=== PATIENT | female | born 1945 | race Caucasian/White ===

== ENCOUNTER 2021-08-17 12:20 | Inpatient (IN) | payer MEDICARE, BC ==
[2021-08-17 13:25] LABS: Mean Corpuscular HGB CONC 30.5 g/dL (32.0-36.0); Mean Corpuscular Hemoglobin 29.6 pg (27.0-31.0); Mean Corpuscular Volume 97.1 fL (78.0-98.0); Mean Platelet Volume 7.9 fL (7.4-10.4); Platelet Count 315 thou/uL (130-400); RBC Distribution Width 13.8 % (11.5-14.5); Red Blood Cell (RBC) Count 5.09 mill/uL (4.20-5.40); White Blood Cell (WBC) Count 22.6 thou/uL (4.8-10.8)
[2021-08-17] MEDS ORDERED: Cefepime 2 GM VIAL ONE (13:29)
[2021-08-17 13:43] LABS: ALT (SGPT) 10 U/L (8-55); AST (SGOT) 18 U/L (5-34); Alkaline Phosphatase 112 U/L (40-110); Anion Gap 16 mmol/L (10-20); BUN (Urea Nitrogen) 15 mg/dL (9.8-20.1); Band 48 % (5-11); Bilirubin, Total 0.4 mg/dL (0.2-1.2); Calc. Creatinine Clearance 0 mL/min (70-130); Calcium 9.6 mg/dL (7.8-10.44); Carbon Dioxide 25 mmol/L (23-31); Chloride 105 mmol/L (98-107); Globulin 3.6 g/dL (2.4-3.5); Glucose 114 mg/dL (83-110); Hypochromia SLIGHT = 6-15 cells (100X) (0-5/hpf); Lymphocytes 11 % (21-51); MDiff Complete? YES; Monocytes 3 % (0-10); Neutrophil 38 % (42-75); Platelet Morphology Comment Appears Adequate; Potassium 4.3 mmol/L (3.5-5.1); Protein, Total 7.6 g/dL (5.8-8.1); Reflex for Review?? YES; Sodium 142 mmol/L (136-145)
[2021-08-17] MEDS ORDERED: Ondansetron PF 4 MG/2 ML Vial ONE ×2 (14:02→14:35)
[2021-08-17] MEDS ORDERED: metroNIDAZOLE 500 MG/100 ML BAG ONE (14:14)
[2021-08-17] MEDS ORDERED: Ondansetron PF 4 MG/2 ML Vial IVP PRN (14:52)
[2021-08-17] MEDS ORDERED: Meropenem 1 GM in Sodium Chloride 0.9% 100 ML IVPB SCH ×2 (14:57→17:45)
[2021-08-17 16:38] LABS: Lactic Acid 2.2 mmol/L (0.5-2.2)
[2021-08-17 17:15] VITALS: BMI 25.2
[2021-08-17] MEDS: Acetaminophen 325 MG TAB PO PRN (17:34)
[2021-08-17] MEDS: Dextrose 5 %-0.45 % NaCl 1,000 ML IV SCH (18:07)
[2021-08-17] MEDS: Pantoprazole 40 MG VIAL IVP SCH (18:07)
[2021-08-18] MEDS: Acetaminophen 325 MG TAB PO PRN ×4 (02:07→16:14)
[2021-08-18] MEDS: Meropenem 1 GM in Sodium Chloride 0.9% 100 ML IVPB SCH ×2 (02:08→13:05)
[2021-08-18] MEDS: Dextrose 5 %-0.45 % NaCl 1,000 ML IV SCH (02:18)
[2021-08-18 05:57] LABS: Anion Gap 14 mmol/L (10-20); BUN (Urea Nitrogen) 12 mg/dL (9.8-20.1); Calc. Creatinine Clearance 60 mL/min (70-130); Calcium 8.6 mg/dL (7.8-10.44); Carbon Dioxide 23 mmol/L (23-31); Chloride 110 mmol/L (98-107); Glucose 130 mg/dL (83-110); Potassium 3.3 mmol/L (3.5-5.1); Sodium 144 mmol/L (136-145)
[2021-08-18 05:59] LABS: Hemoglobin 12.5 g/dL (12.0-16.0); Mean Corpuscular HGB CONC 30.6 g/dL (32.0-36.0); Mean Corpuscular Hemoglobin 30.4 pg (27.0-31.0); Mean Corpuscular Volume 99.3 fL (78.0-98.0); Mean Platelet Volume 8.6 fL (7.4-10.4); Platelet Count 267 thou/uL (130-400); RBC Distribution Width 13.6 % (11.5-14.5); Red Blood Cell (RBC) Count 4.12 mill/uL (4.20-5.40); White Blood Cell (WBC) Count 25.5 thou/uL (4.8-10.8)
[2021-08-18 06:22] LABS: Band 34 % (5-11); Lymphocytes 7 % (21-51); MDiff Complete? YES; Monocytes 6 % (0-10); Neutrophil 53 % (42-75)
[2021-08-18] MEDS ORDERED: Potassium Chloride 20 MEQ TAB PO SCH (08:00)
[2021-08-18] MEDS: Potassium Chloride 20 MEQ in Premix Bag 1 BAG IVPB SCH ×2 (08:39→13:46)
[2021-08-18] MEDS: Enoxaparin Sodium 30 MG/0.3 ML SYRINGE SC SCH (08:48)
[2021-08-18] MEDS: metroNIDAZOLE 500 MG in Premix Bag 1 BAG IVPB SCH ×2 (11:21→17:51)
[2021-08-18] MEDS: Pantoprazole 40 MG VIAL IVP SCH (17:47)
[2021-08-19] MEDS: metroNIDAZOLE 500 MG in Premix Bag 1 BAG IVPB SCH ×3 (00:58→18:21)
[2021-08-19] MEDS: Metoclopramide HCl 10 MG/2 ML VIAL IVP PRN ×2 (00:58→11:27)
[2021-08-19] MEDS: Acetaminophen 325 MG TAB PO PRN ×3 (01:07→20:45)
[2021-08-19] MEDS: Meropenem 1 GM in Sodium Chloride 0.9% 100 ML IVPB SCH ×3 (02:39→23:23)
[2021-08-19 04:52] LABS: Hemoglobin 13.1 g/dL (12.0-16.0); Mean Corpuscular HGB CONC 30.5 g/dL (32.0-36.0); Mean Corpuscular Hemoglobin 29.4 pg (27.0-31.0); Mean Corpuscular Volume 96.5 fL (78.0-98.0); Mean Platelet Volume 8.5 fL (7.4-10.4); Platelet Count 304 thou/uL (130-400); RBC Distribution Width 13.6 % (11.5-14.5); Red Blood Cell (RBC) Count 4.44 mill/uL (4.20-5.40); White Blood Cell (WBC) Count 23.6 thou/uL (4.8-10.8)
[2021-08-19 05:04] LABS: Anion Gap 14 mmol/L (10-20); BUN (Urea Nitrogen) 11 mg/dL (9.8-20.1); Calc. Creatinine Clearance 66 mL/min (70-130); Calcium 9.4 mg/dL (7.8-10.44); Carbon Dioxide 27 mmol/L (23-31); Chloride 104 mmol/L (98-107); Glucose 117 mg/dL (83-110); Potassium 3.5 mmol/L (3.5-5.1); Sodium 141 mmol/L (136-145)
[2021-08-19 05:26] LABS: Band 21 % (5-11); Lymphocytes 2 % (21-51); MDiff Complete? YES; Monocytes 4 % (0-10); Neutrophil 73 % (42-75)
[2021-08-19] MEDS: Enoxaparin Sodium 30 MG/0.3 ML SYRINGE SC SCH (08:41)
[2021-08-19] MEDS ORDERED: Iopamidol-370 76% 500 ML 1 ML ONE (11:27)
[2021-08-19] MEDS ORDERED: Lactated Ringer's 500 ML IV SCH (13:00)
[2021-08-19] MEDS ORDERED: Azithromycin 500 MG in Sodium Chloride 0.9% 250 ML 250 ML IVPB SCH (13:00)
[2021-08-19 13:27] LABS: Magnesium 1.6 mg/dL (1.6-2.6)
[2021-08-19 15:58] LABS: Lactic Acid 1.9 mmol/L (0.5-2.2)
[2021-08-19] MEDS: Promethazine HCl 12.5 MG in Sodium Chloride 0.9% 50 ML IVPB SCH ×2 (17:34→23:27)
[2021-08-19] MEDS: Pantoprazole 40 MG VIAL IVP SCH (17:34)
[2021-08-19] MEDS: Metoclopramide HCl 10 MG/2 ML VIAL IVP SCH ×2 (18:21→23:21)
[2021-08-19] MEDS: Dextrose 5 %-0.45 % NaCl 1,000 ML IV SCH ×2 (23:17)
[2021-08-20] MEDS: metroNIDAZOLE 500 MG in Premix Bag 1 BAG IVPB SCH ×2 (01:32→08:30)
[2021-08-20] MEDS: Acetaminophen 325 MG TAB PO PRN ×4 (02:06→20:38)
[2021-08-20] MEDS: Metoclopramide HCl 10 MG/2 ML VIAL IVP SCH ×4 (05:35→23:08)
[2021-08-20] MEDS: Meropenem 1 GM in Sodium Chloride 0.9% 100 ML IVPB SCH ×3 (05:35→21:42)
[2021-08-20] MEDS: Promethazine HCl 12.5 MG in Sodium Chloride 0.9% 50 ML IVPB SCH ×2 (05:39→13:24)
[2021-08-20] MEDS: Enoxaparin Sodium 30 MG/0.3 ML SYRINGE SC SCH (08:29)
[2021-08-20 09:19] LABS: Band 1 % (5-11); Eosinophils 1 % (0-10); Hemoglobin 13.6 g/dL (12.0-16.0); Hypochromia SLIGHT = 6-15 cells (100X) (0-5/hpf); Lymphocytes 9 % (21-51); MDiff Complete? YES; Mean Corpuscular HGB CONC 30.6 g/dL (32.0-36.0); Mean Corpuscular Hemoglobin 29.8 pg (27.0-31.0); Mean Corpuscular Volume 97.3 fL (78.0-98.0); Mean Platelet Volume 8.4 fL (7.4-10.4); Monocytes 5 % (0-10); Neutrophil 77 % (42-75); Platelet Count 295 thou/uL (130-400); Platelet Morphology Comment Appears Adequate; Polychromasia SLIGHT = 2-3 cells (100X) (0-2/hpf); RBC Distribution Width 13.5 % (11.5-14.5); Reactive Lymphocytes 6 % (0-10); Red Blood Cell (RBC) Count 4.56 mill/uL (4.20-5.40); White Blood Cell (WBC) Count 18.8 thou/uL (4.8-10.8)
[2021-08-20 09:20] LABS: Anion Gap 14 mmol/L (10-20); BUN (Urea Nitrogen) 8 mg/dL (9.8-20.1); Calc. Creatinine Clearance 65 mL/min (70-130); Calcium 9.4 mg/dL (7.8-10.44); Carbon Dioxide 26 mmol/L (23-31); Chloride 104 mmol/L (98-107); Glucose 128 mg/dL (83-110); Potassium 3.2 mmol/L (3.5-5.1); Sodium 141 mmol/L (136-145)
[2021-08-20] MEDS: Dextrose 5 %-0.45 % NaCl 1,000 ML IV SCH ×2 (10:52→21:42)
[2021-08-20] MEDS: Diltiazem HCl 125 MG in Premix Bag 1 BAG IVPB SCH ×2 (13:15→23:10)
[2021-08-20] MEDS ORDERED: Ondansetron ODT 8 MG TAB SL PRN (14:14)
[2021-08-20 17:24] LABS: Free T4 (Free Thyroxine) 1.02 ng/dL (0.70-1.48); Thyroid Stimulating Hormone 1.1139 uIU/mL (0.35-4.94)
[2021-08-20] MEDS: Pantoprazole 40 MG VIAL IVP SCH (19:29)
[2021-08-20] MEDS: Atorvastatin Calcium 20 MG TAB PO SCH (20:38)
[2021-08-21] MEDS: Acetaminophen 325 MG TAB PO PRN ×6 (00:31→23:55)
[2021-08-21 04:45] LABS: #Basophils 0.1 thou/uL (0.0-0.2); #Eosinphils 0.2 thou/uL (0.0-0.7); #Lymphocytes 1.5 thou/uL (1.20-3.40); #Monocytes 1.1 thou/uL (0.11-0.59); #Neutrophils 11.2 thou/uL (1.40-6.50); %Basophils 0.4 % (0.0-1.0); %Eosinophils 1.2 % (0.0-10.0); %Lymphocytes 10.7 % (21.0-51.0); %Monocytes 8.1 % (0.0-10.0); %Neutrophils 79.6 % (42.0-75.0); Hemoglobin 11.7 g/dL (12.0-16.0); Mean Corpuscular HGB CONC 30.8 g/dL (32.0-36.0); Mean Corpuscular Hemoglobin 30.3 pg (27.0-31.0); Mean Corpuscular Volume 98.2 fL (78.0-98.0); Mean Platelet Volume 8.2 fL (7.4-10.4); Platelet Count 287 thou/uL (130-400); RBC Distribution Width 13.5 % (11.5-14.5); Red Blood Cell (RBC) Count 3.86 mill/uL (4.20-5.40)
[2021-08-21] MEDS: Dextrose 5 %-0.45 % NaCl 1,000 ML IV SCH (05:04)
[2021-08-21] MEDS: Levothyroxine Sodium 25 MCG TAB PO SCH (05:06)
[2021-08-21] MEDS: Metoclopramide HCl 10 MG/2 ML VIAL IVP SCH ×2 (05:06→12:06)
[2021-08-21] MEDS: Meropenem 1 GM in Sodium Chloride 0.9% 100 ML IVPB SCH ×3 (05:06→22:12)
[2021-08-21 05:08] LABS: Anion Gap 11 mmol/L (10-20); BUN (Urea Nitrogen) 7 mg/dL (9.8-20.1); Calc. Creatinine Clearance 72 mL/min (70-130); Calcium 8.8 mg/dL (7.8-10.44); Carbon Dioxide 30 mmol/L (23-31); Chloride 106 mmol/L (98-107); Glucose 136 mg/dL (83-110); Sodium 144 mmol/L (136-145)
[2021-08-21 05:11] LABS: Potassium 2.8 mmol/L (3.5-5.1)
[2021-08-21] MEDS ORDERED: Electrolyte Replacement Protocol FS PRN (06:15)
[2021-08-21 06:35] LABS: Magnesium 1.5 mg/dL (1.6-2.6)
[2021-08-21] MEDS: Potassium Chloride 40 MEQ in Sodium Chloride 0.9% 250 ML 250 ML IVPB SCH ×2 (07:44→12:06)
[2021-08-21] MEDS: Cholecalciferol 1,000 UNITS (25 MCG) TAB PO SCH (07:45)
[2021-08-21] MEDS: predniSONE 20 MG TAB PO SCH (07:45)
[2021-08-21] MEDS: Cyanocobalamin (Vitamin B-12) 1,000 MCG TAB PO SCH (07:45)
[2021-08-21] MEDS: Aspirin 81 mg Enteric Coated Tablet PO SCH (07:45)
[2021-08-21] MEDS: Enoxaparin Sodium 40 MG/0.4 ML SYRINGE SC SCH (07:45)
[2021-08-21] MEDS ORDERED: Magnesium 2 GM/50 ML(in water) 2 GM in Premix Bag 1 BAG IVPB SCH (08:00)
[2021-08-21] MEDS: Pantoprazole 40 MG VIAL IVP SCH (17:56)
[2021-08-21 18:02] VITALS: BP 139/64
[2021-08-21] MEDS: Atorvastatin Calcium 20 MG TAB PO SCH (19:59)
[2021-08-21 20:09] LABS: Potassium 3.9 mmol/L (3.5-5.1)
[2021-08-22] MEDS: Acetaminophen 325 MG TAB PO PRN ×4 (04:06→19:50)
[2021-08-22 04:49] LABS: Anion Gap 15 mmol/L (10-20); BUN (Urea Nitrogen) 12 mg/dL (9.8-20.1); Calc. Creatinine Clearance 79 mL/min (70-130); Carbon Dioxide 28 mmol/L (23-31); Chloride 105 mmol/L (98-107); Glucose 98 mg/dL (83-110); Potassium 3.6 mmol/L (3.5-5.1); Sodium 144 mmol/L (136-145)
[2021-08-22] MEDS: Meropenem 1 GM in Sodium Chloride 0.9% 100 ML IVPB SCH ×3 (05:17→19:48)
[2021-08-22] MEDS: Levothyroxine Sodium 25 MCG TAB PO SCH (05:17)
[2021-08-22] MEDS: Enoxaparin Sodium 40 MG/0.4 ML SYRINGE SC SCH (08:28)
[2021-08-22] MEDS: predniSONE 20 MG TAB PO SCH (08:28)
[2021-08-22] MEDS: Cholecalciferol 1,000 UNITS (25 MCG) TAB PO SCH (08:28)
[2021-08-22] MEDS: Cyanocobalamin (Vitamin B-12) 1,000 MCG TAB PO SCH (08:28)
[2021-08-22] MEDS: Aspirin 81 mg Enteric Coated Tablet PO SCH (08:28)
[2021-08-22] MEDS ORDERED: Potassium Chloride 20 MEQ TAB PO SCH (13:00)
[2021-08-22] MEDS: Pantoprazole 40 MG VIAL IVP SCH (16:35)
[2021-08-22] MEDS: Atorvastatin Calcium 20 MG TAB PO SCH (19:48)
[2021-08-23] MEDS: Acetaminophen 325 MG TAB PO PRN (02:59)
[2021-08-23 04:32] LABS: Mean Corpuscular HGB CONC 31.5 g/dL (32.0-36.0); Mean Corpuscular Hemoglobin 30.4 pg (27.0-31.0); Mean Corpuscular Volume 96.4 fL (78.0-98.0); Mean Platelet Volume 7.9 fL (7.4-10.4); Platelet Count 364 thou/uL (130-400); RBC Distribution Width 13.6 % (11.5-14.5); Red Blood Cell (RBC) Count 3.93 mill/uL (4.20-5.40); White Blood Cell (WBC) Count 9.9 thou/uL (4.8-10.8)
[2021-08-23 04:52] LABS: Anion Gap 15 mmol/L (10-20); BUN (Urea Nitrogen) 18 mg/dL (9.8-20.1); Calc. Creatinine Clearance 0 mL/min (70-130); Calcium 9.3 mg/dL (7.8-10.44); Carbon Dioxide 27 mmol/L (23-31); Chloride 106 mmol/L (98-107); Glucose 105 mg/dL (83-110); Potassium 3.6 mmol/L (3.5-5.1); Sodium 144 mmol/L (136-145)
[2021-08-23] MEDS: Levothyroxine Sodium 25 MCG TAB PO SCH (06:01)
[2021-08-23 07:37] VITALS: TEMP 98
[2021-08-23] MEDS: Aspirin 81 mg Enteric Coated Tablet PO SCH (09:12)
[2021-08-23] MEDS: predniSONE 20 MG TAB PO SCH (09:12)
[2021-08-23] MEDS: Enoxaparin Sodium 40 MG/0.4 ML SYRINGE SC SCH (09:13)
[2021-08-23] MEDS: Cyanocobalamin (Vitamin B-12) 1,000 MCG TAB PO SCH (09:14)
[2021-08-23] MEDS: Cholecalciferol 1,000 UNITS (25 MCG) TAB PO SCH (09:14)
== END 2021-08-23 11:15 | disposition home or self-care (01) | DRG 393 ==
LOC: SUATTDRO 12:20 → ERS 12:20 → NEURO 14:27 → IMCU/EMU 08-19 20:18
PROVIDERS: ADMIT Internal Medicine; ATTEND Internal Medicine
DX: K91.89 Other postprocedural complications and disorders of digestive system (principal); A41.9 Sepsis, unspecified organism; J69.0 Pneumonitis due to inhalation of food and vomit; J96.01 Acute respiratory failure with hypoxia; R65.20 Severe sepsis without septic shock; E03.9 Hypothyroidism, unspecified; M10.9 Gout, unspecified; E78.5 Hyperlipidemia, unspecified; I10 Essential (primary) hypertension; K21.9 Gastro-esophageal reflux disease without esophagitis; Y83.8 Other surgical procedures as the cause of abnormal reaction of the patient, or of later complication, without mention of misadventure at the time of the procedure; Z20.822 Contact with and (suspected) exposure to COVID-19; K46.9 Unspecified abdominal hernia without obstruction or gangrene; I48.91 Unspecified atrial fibrillation; E87.6 Hypokalemia; E83.42 Hypomagnesemia; I07.1 Rheumatic tricuspid insufficiency; Z88.0 Allergy status to penicillin; Z88.2 Allergy status to sulfonamides; Z85.028 Personal history of other malignant neoplasm of stomach; Z85.01 Personal history of malignant neoplasm of esophagus
CPT/HCPCS: 36415; 71045; 71260; 74177; 80048; 80053; 83605; 83735; 83880; 84145; 84439; 84443; 84481; 84484; 85025; 85027; 85060; 86140; 87040; 87070; 87205; 93005; 93010; 93306; 94640; 94760; C9113; J0692; J1650; J2185; J2405; J2550; J2765; J3475; J3480; J3490; J7042; J7050; J7120; J7512; J7620; Q9967; U0003; U0005